=== PATIENT | male | born 1955 | race Caucasian/White ===

== ENCOUNTER 2018-09-02 09:59 | Inpatient (IN) | payer BC ==
[~2018-09-02] VITALS: Ht 175.3 cm; Wt 92.1 kg
--- NOTE | ~2018-09-02 | CON ---
[address] [address] CONSULTATION Name: HELGA HOOKER Room: [address] IN .R.#: [id number] Admission: 09/02/18 Attend Phys: Suzanne Jefferson Discharge: Date of : 57 Report #: [id number] THIS REPORT FOR: //name// CC: [facility] physician/PCP Harjinder Hagan DATE OF SERVICE: 09/02/2018 HISTORY OF PRESENT ILLNESS: This is a 63-year-old male patient who was evaluated by me for memory disturbances. This patient provides some history. His girlfriend is there; she provided some history. Apparently, this patient was not sleeping good. That is unusual for him. Usually, he has pretty good sleep. He is getting and he is stressed out at work. So for one month, he was not sleeping good. He tried to take some [id number] medication and that caused some side effects. He is feeling somewhat better now. He does not believe he has any hallucination. REVIEW OF SYSTEMS: His 14-point review of system was carried out. It looks like he is stressed out. Otherwise, it has been unremarkable. He says he does not have a family doctor. There was some question of word-finding difficulty in this patient. He has no history of trauma. He has no visual disturbances or any ENT or cardiac history. He does have his back problems in the past. He does not complain of any GI, , dermatological or hematological symptom. PAST MEDICAL HISTORY: Negative for these kind of symptoms. FAMILY HISTORY: Unremarkable. SOCIAL HISTORY: He said he does not drink alcohol. PHYSICAL EXAMINATION: GENERAL: The patient's examination indicates he is alert. He is responsive. He is oriented. NEUROLOGIC: Cranial nerve examination appears unremarkable. His speech looks unremarkable. He has no papilledema. Strength, sensation, reflexes and tones are symmetrical. There is no meningeal sign. There is no carotid bruit in this patient. CARDIAC EXAMINATION: Unremarkable. LUNGS: No respiratory difficulty was noted. SKIN: There is no edema, cyanosis or jaundice. VITAL SIGNS: Blood pressure is 123/73, respirations 17, pulse is 62 and temperature is 97.3. LABORATORY DATA: His labs indicate a normal white count at 7.7. His potassium is 3.1. His bilirubin is trace high. He did have a CT scan of the head and an MRI and they [place] [address] CONSULTATION Name: HELGA HOOKER Room: [address]#: [id number] Admission: 09/02/18 Attend Phys: Suzanne Jefferson Discharge: Date of : 57 Report #: [id number] IMPRESSION: I suspect the most likely etiology for the patient's symptoms is psychiatric. I think we need to evaluate him for that first. I did order a TSH, vitamin B12 and we will get a carotid Doppler done. Because one episode of speech difficulty was noticed and if that is normal, that is as far as we can evaluate, the next step will be doing a neuropsychological testing done. There is no facility available to do that here and that needs to be done as an outpatient. Thank you very much for this referral. By: 2019 1041Pdarling Soriano MD /nt
[2018-09-02 10:03] VITALS: BP 124/60
[2018-09-02 10:18] LABS: ABSOLUTE LYMPHOCYTES 1.2 thou/uL (0.8-5.3); ABSOLUTE MONOCYTES 0.3 thou/uL (0.0-1.2); ABSOLUTE NEUTROPHILS 6.2 thou/uL (1.6-8.1); BASOPHILS 0.3 %; EOSINOPHILS 0.1 %; HEMATOCRIT 38.8 % (42.0-52.0); HEMOGLOBIN 13.6 gm/dL (14.0-18.0); LYMPHOCYTES 15.5 %; MCH 30.8 pg (26.0-34.0); MCHC 35.1 g/dL (28.0-37.0); MCV 87.6 fL (80.0-100.0); MONOCYTES 3.6 %; MPV 8.1 fl. (7.2-11.1); NUCLEATED RBCS 0 /100WBC; PLATELET COUNT* 226 thou/uL (150-400); POLYS 80.5 %; RBC 4.43 mil/uL (4.50-6.00); RDW-CV 14.1 % (10.5-14.5); WBC 7.7 thou/uL (4.0-11.0)
[2018-09-02 10:30] LABS: APTT 28.2 Seconds (25.0-31.3); INR 1.1; PROTIME 10.8 Seconds (9.20-11.50)
[2018-09-02 10:38] LABS: ANION GAP 8 mmol/L (7-16); BUN 12 mg/dL (7-18); CALCIUM 9.1 mg/dL (8.5-10.1); CHLORIDE 108 mmol/L (98-107); CO2 28 mmol/L (21-32); GLUCOSE 124 mg/dL (70-99); POTASSIUM 3.1 mmol/L (3.5-5.1); SODIUM 144 mmol/L (136-145); TROPONIN-I LEVEL <0.06 ng/mL (<0.06)
[2018-09-02 10:44] LABS: ALKALINE PHOSPHATASE 53 U/L (46-116); CK-MB MASS 1.6 ng/mL (<0.5-3.6); NT-PRO BRAIN NAT PEPTIDE 134 pg/mL (<300); SGOT 23 U/L (15-37); SGPT 26 U/L (30-65); TOTAL BILIRUBIN 1.1 mg/dL (<0.1-1.0); TOTAL PROTEIN 6.9 g/dL (6.4-8.2)
[2018-09-02 14:14] VITALS: BP 121/67
[2018-09-02 15:12] VITALS: BP 126/67
[2018-09-02 16:06] VITALS: BP 123/73
--- NOTE | 2018-09-02 16:38 | NUR ---
PT ADMITTED TO ROOM 220 AROUND 1420 WITH DX ALTERED MENTAL STATUS. PT IS NOTED TO BE A&OX4 AT TIME OF ASSESSMENT WITH NO HALLUCINATIONS REPORTED. PT'S GIRLFRIEND AND DAUGHTER AT BEDSIDE AND REPORT PT HAS BEEN HAVING CONFUSION AND ALTERED MENTAL STATUS FOR THE LAST THREE WEEKS. NO OTHER CONCERNS AT THIS TIME.CLWR. WCTM.
[2018-09-02 19:05] VITALS: BP 118/71
[2018-09-03 00:01] VITALS: BP 122/61
[2018-09-03 04:00] VITALS: BP 100/56
--- NOTE | 2018-09-03 04:34 | NUR ---
INITIAL ASSESSMENT COMPLETED CHARTED. TRACING SR ON MONITOR. PT IS LAERT & ORIENTTED AND ABLE TO VOICE ALL NEEDS ALTHOUGH FORGETFUL AND IS SLOW TO RESPOND. PT HAS SLEPT WELL T/O THIS SHIFT, DENIES PAIN, N/V/D. NO NEW CONCERNS AT THIS TIME. HOURLY ROUNDING IN PLACE FOR SAFETY. CLWR.
[2018-09-03 08:00] VITALS: BP 124/63
--- NOTE | 2018-09-03 10:59 | NUR ---
ASSUMED PT CARE AT 0800, AOX4, SBA, 02 SAT 90'S RA. 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 DENIES ANY PAIN, WANTS TO GO HOME TODAY. LAST BM 09/03/18, ABDOMEN SOFT AND ROUND. PT ON REG DIET. IV ACESS INTACT. BRUISES ON L ARM NOTED. PT IS FOR MRA AND EEG. VSS, AM ASSESSMENT CHARTED. FALL PRECAUTION, BED ALARM, CALL LIGHT WITHIN REACH, HOURLY ROUNDING. WILL CONTINUE TO MONITOR.
[2018-09-03 11:24] LABS: CALCIUM 8.6 mg/dL (8.5-10.1); CREATININE 0.9 mg/dL (0.6-1.3); MAGNESIUM 2.2 mg/dL (1.8-2.4); POTASSIUM 3.2 mmol/L (3.5-5.1)
--- NOTE | 2018-09-03 14:30 | EKG ---
[place] [address] ELECTROCARDIOGRAM REPORT Name: HELGA HOOKER Room: [address] IN [facility]#: [id number] Admission: 09/02/18 Attend Phys: Suzanne Jefferson Discharge: Date of : 57 Report #: [id number] THIS REPORT FOR: //name// [facility] ED Test Date: 2018-09-02 Test Time: 10:23:32 Pat Name: HELGA HOOKER Department: Room: [facility] Gender: M Clerical Aide Teacher: [facility] : 1955 Requested By: Bob Kenney Order Number: [id number] MD: Marcel Green Measurements Intervals [place] Rate: 77 P: 34 MT: 170 QRS: -14 QRSD: 120 T: -6 QT: 410 QTc: 465 Interpretive Statements Sinus rhythm Atrial premature complexes Nonspecific intraventricular conduction delay Borderline T abnormalities, inferior leads No previous ECG available for comparison Electronically Signed On 09-03-2018 14:29:49 CDT by Marcel Green [email or web address] <ELECTRONICALLY SIGNED> By: Marcel Green MD, [facility] 09/03/18 1429 1023 1023 Marcel Green MD, [facility] /EPI
[2018-09-03 15:08] VITALS: BP 124/63
--- NOTE | 2018-09-03 16:21 | NUR ---
Pt is A&O. Resides at home with his girlfriend. Active and independent. No DME. No hx of HH or SNF. Goal is home at mi. Following.
--- NOTE | 2018-09-03 16:21 | NUR ---
VSS, ASSESSMENT CHARTED. DISCHARGE PLANNING DISCUSS, COMMUNICATES UNDERSTANDING. IV, TELE REMOVED. REMINDED TO FOLLOW UP WITH PHYSICIAN. ALL BELONGINGS PACKED AND CHECKED. LEFT THE UNIT 1625.
--- NOTE | 2018-09-03 19:27 | NUR ---
I HAVE REVIWED AND AGREE WITH THE CHARTING OF EDNA Carranza RN ON 09/03/18
== END 2018-09-03 16:22 | disposition home or self-care (01) | DRG 72 ==
LOC: M.ERS 09:59 → M.TBA-ER 11:23 → M.2W 11:23
PROVIDERS: Family Medicine; ADMIT Internal Medicine
DX: G93.40 Encephalopathy, unspecified (principal); E87.6 Hypokalemia; G47.00 Insomnia, unspecified